=== PATIENT | male | born 1970 | race Native Hawaiian/Other Pacific Islander ===

== ENCOUNTER 2022-05-29 14:43 | Emergency (ER) | payer OTHER ==
[~2022-05-29] VITALS: Ht 177.8 cm; Wt 49.0 kg
[2022-05-29 14:45] VITALS: TEMP 97.7
[2022-05-29 16:06] LABS: PLATELET COUNT 656 K/uL (142-355)
[2022-05-29 16:12] LABS: POTASSIUM 4.6 mmol/L (3.6-5.2)
[2022-05-29 19:30] VITALS: BP 158/93
== END 2022-05-29 19:39 | disposition home or self-care (01) ==
LOC: ED 14:43
PROVIDERS: Internal Medicine
DX: F12.10 Cannabis abuse, uncomplicated (principal)
CPT/HCPCS: 80053; 80307; 85027; 96374; 96376; 99284; J1885; Q9963